=== PATIENT | female | born 1940 | race Caucasian/White ===

== ENCOUNTER → 2016-08-27 | Outpatient (CLI) | payer MEDICARE ==
[~2016-08-27] VITALS: Ht 157.5 cm; Wt 83.0 kg
[2016-08-27] VITALS (8 sets, daily range): BP systolic 79–122; BP diastolic 46–79
[~2016-08-27] MED LIST: CALC650T6 PO; CHOL20002 PO; DOCU100C5 PO; FENTANYL PF 250 MCG/5 ML VIAL. IV ONE; FENTANYL PF 250 MCG/5 ML VIAL. ONE; FURO20TA3 PO; LEVO50TA5 PO; LIDOCAINE 1% / SOD BICARB 8.4% 20 ML VIAL. IJ ONE; METO50TA2 PO; MIDAZOLAM HCL/PF 5 MG/5 ML VIAL IV ONE; MIDAZOLAM HCL/PF 5 MG/5 ML VIAL ONE; MULT1TAB49 PO; PANT40TA5 PO; POTA10CA PO; PSYL0.4C PO; RIVA20TA2 PO; SIMV40TA3 PO; SPIR25TA3 PO; UBID100C PO; VIT1CAPS12 PO; [UNRECOGNIZED DRUG - CODE] PO
[2016-08-27 08:45] LABS: BASO % 1 % (0-3); EOS % 1 % (0-3); HEMATOCRIT 37.6 % (36.0-47.0); HEMOGLOBIN 11.3 g/dL (12.0-15.5); LYMPH # 1.2 x10^3/uL (1.0-4.8); LYMPH % 35 % (24-48); MEAN CORPUSCULAR HEMOGLOBIN 22 pg (25-35); MEAN CORPUSCULAR HGB CONC 30 g/dL (31-37); MEAN CORPUSCULAR VOLUME 75 fL (79-100); MONO % 10 % (0-9); NEUT % 53 % (31-73); PLATELET COUNT 96 x10^3/uL (140-400); RED BLOOD COUNT 5.05 x10^6/uL (3.50-5.40); RED CELL DISTRIBUTION WIDTH 31.9 % (11.5-14.5); WHITE BLOOD COUNT 3.4 x10^3/uL (4.0-11.0)
[2016-08-27 08:59] LABS: INR 1.1 (0.8-1.1); PROTHROMBIN TIME PATIENT 13.5 SEC (11.7-14.0)
--- NOTE | 2016-08-27 09:12 | RAD ---
Exam performed: Complete abdominal sonogram. Indication:Pancytopenia Date of exam: 08/27/16 Technique:Real time holden scale imaging of the abdomen is performed and images are obtained. Findings : The liver is normal in size and echogenicity and measures 15.7 cm in length. No intra- or extrahepatic biliary dilatation is present. The common duct measures 2.1 mm . The gallbladder appears normal. The visualized portions of the pancreas are unremarkable. The spleen is normal in size and measures 11.4 cm. Both kidneys are unremarkable without evidence for hydronephrosis.Right kidney measures 11.1 x 4.8 x 4.7 cm. There is a tiny 9 mm nonobstructing calculus in the right superior renal pole. The left kidney measures 10.9 x 4.4 x 5.0. There is no hydronephrosis. The inferior vena cava and aorta appear normal. Impression: Nonobstructing 9 mm right superior renal pole calculus, otherwise unremarkable study.
--- NOTE | 2016-08-27 10:23 | PDOC ---
MODERATE SEDATION ASSESSMENT RISKS/ALTERNATIVES Risks/Alternatives Risks and alternatives of this type of sedation and procedure discussed with: RISK/ALTERNATIVES: Patient H & P ON CHART H & P H & P on chart and reviewed for co-morbid conditions and appropriate labs. H&P ON CHART: Yes STATUS PREG STATUS ASSESSED: Yes MEDS/ALLERGIES REVIEWED Meds/Allergies Reviewed Medications and Allergies including time and route of recently administered narcotics and sedatives. MEDS/ALLERGIES REVIEWED: Yes ASA RATING ASA RATING: II AIRWAY ASSESSMENT Airway Assessment Airway patency, oral function limitations, presence of caps, crowns, dentures, partials, and ability to extend neck assessed. AIRWAY ASSESSMENT: Yes MALLAMPATI SCORE MALLAMPATI SCORE: II PRE-SEDATION ASSESSMENT PRE-SEDATION ASSESSMENT: Yes RITO FLOREZ MD Aug 27, 2016 10:23
--- NOTE | 2016-08-27 10:23 | PDOC1 ---
History and Physical Date of Procedure Date of Admission History of Present Illness Reason for Visit Pancytopenia Past Medical History Past Medical History see nursing pre-op assessment Current Medications Current Medications Current Medications Lidocaine/Sodium Bicarbonate (Buffered Lidocaine 1%) 20 ml STK-MED ONCE IJ ; Start 08/27/16 at 09:57; Stop 08/27/16 at 09:58; Status DC Midazolam HCl (Versed) 5 mg STK-MED ONCE .ROUTE ; Start 08/27/16 at 09:57; Stop 08/27/16 at 09:58; Status DC Fentanyl Citrate (Fentanyl 5ml Vial) 250 mcg STK-MED ONCE .ROUTE ; Start at 09:58; Stop 08/27/16 at 09:59; Status DC Lidocaine/Sodium Bicarbonate (Buffered Lidocaine 1%) 20 ml 1X ONCE IJ ; Start 08/27/16 at 10:15; Stop 08/27/16 at 10:16; Status DC Midazolam HCl (Versed) 5 mg 1X ONCE IV ; Start 08/27/16 at 10:45; Stop 08/27/16 at 10:46 Fentanyl Citrate (Fentanyl 5ml Vial) 250 mcg 1X ONCE IV ; Start 08/27/16 at 10: 15; Stop 08/27/16 at 10:16; Status DC Active Scripts Active Reported Preservision Areds Softgel (Vit A/Vit C/Vit E/Zinc/Copper) 1 Each Capsule 1 Each PO BID Spironolactone 25 Mg Tablet 12.5 Mg PO DAILY Simvastatin 40 Mg Tablet 40 Mg PO DAILY Xarelto (Rivaroxaban) 20 Mg Tablet 20 Mg PO DAILY Psyllium (Psyllium Husk) 0.4 Gm Capsule 1.6 Gm PO HS Potassium Chloride 10 Meq Capsule.er 10 Meq PO DAILY Pantoprazole Sodium 40 Mg Tablet.dr 40 Mg PO BID Daily Tang (Multivitamin) 1 Each Tablet 1 Each PO DAILY Metoprolol Tartrate 50 Mg Tablet 50 Mg PO BID Levothyroxine Sodium 50 Mcg Tablet 50 Mcg PO DAILYAC Furosemide 20 Mg Tablet 20 Mg PO DAILY alternate with 40mg every other day Docusate Sodium 100 Mg Capsule 200 Mg PO HS Total Allergy (Diphenhydramine HCl) 25 Mg Tablet 25 Mg PO HS Coenzyme Q10 (Ubidecarenone) 100 Mg Capsule 100 Mg PO DAILY Vitamin D-3 (Cholecalciferol (Vitamin D3)) 2,000 Unit Tablet 2,000 Unit PO DAILY Calcium Carbonate 650 Mg Tablet 1,250 Mg PO DAILY Allergies Allergies: Coded Allergies: adhesive (Verified Allergy, Intermediate, itching when left on to long, 08/27/16) Physical Exam Vital Signs Vital Signs Date Time Temp Pulse Resp B/P Pulse Ox O2 Delivery O2 Flow Rate FiO2 08/27/16 10:18 62 8 90 Nasal Cannula 3.0 08/27/16 08:52 98.0 115/65 98.0 Other see nursing pre-op assessment Assessment Assessment Pancytopenia Problems: Plan Plan CT Bone Marrow Biopsy RITO FLOREZ MD Aug 27, 2016 10:23
--- NOTE | 2016-08-27 10:24 | PDOC ---
BRIEF OPERATIVE NOTE Pre-Op Diagnosis Pancytopenia Post-Op Diagnosis same Procedure Performed CT Bone Marrow Biopsy Surgeon Ramirez Anesthesia Type: Conscious Sedation Specimens Obtained 2 x 2cc aspirates and 1 x 10g core Complications No immediate RITO FLOREZ MD Aug 27, 2016 10:24
[2016-08-27 13:48] LABS: ANISOCYTOSIS MARKED; MICROCYTOSIS SLIGHT; PLT ESTIMATE DECREASED (ADEQUATE)
[2016-08-27 13:50] LABS: HYPOCHROMIA MOD
[2016-08-27 13:55] LABS: BURR CELLS OCC
--- NOTE | 2016-08-27 15:12 | RAD ---
Procedure: CT-guided bone marrow aspiration and biopsy Clinical Indication: 76-year-old with pancytopenia Sedation: Conscious sedation was administered for less than 15 minutes. The patient was monitored by a qualified independent observer throughout the time of sedation. Please refer to the medical record for exact doses of medications utilized to achieve moderate sedation. Antibiotics: None Fluoro Time: Not applicable Contrast: None Sterility: The procedure was performed in its entirety using appropriate elements of sterile technique. Consent: The procedure was explained in its entirety to the patient or the patients designated call center support representative by a member of the treatment team, including a discussion of the risks, benefits and commonly accepted alternatives to the procedure, as well as the expected consequences of no therapy whatsoever. Discussion of the risks included, but was not limited to, those that are most frequent and those that are rare but possibly severe or life-threatening, as well as the possibility of unforeseen complications. Technique and Findings: Following informed consent, the patient was prepped and draped in usual sterile fashion. Preliminary CT scan of the area of interest was performed. 1% Lidocaine was used to achieve local anesthesia. Under periodic CT surveillance, an 11-gauge needle was advanced through the cortex of the posterior superior iliac spine and 2 separate 2 mL marrow aspirates were obtained and preserved on site by the assistant case manager. A single 11-gauge core biopsy specimen was then obtained and preserved in formalin. The needle was then removed and hemostasis was achieved with manual compression. Complications: No immediate Impression: 1. CT-guided bone marrow aspiration and biopsy as described PQRS Compliance Statement: One or more of the following individualized dose reduction techniques were utilized for this examination: 1. Automated exposure control 2. Adjustment of the mA and/or kV according to patient size 3. Use of iterative reconstruction technique
== END | disposition home or self-care (01) ==
LOC: US 07:03
PROVIDERS: ATTEND Internal Medicine Hematology & Oncology
DX: D50.0 Iron deficiency anemia secondary to blood loss (chronic) (principal)
CPT/HCPCS: 36415; 38221; 76700; 77012; 85007; 85027; 85610; 88184; 88185; 88237; C1892; G0364; J2250; J3010